=== PATIENT | male | born 1955 | race Caucasian/White ===

== ENCOUNTER 2022-02-09 08:21 | Emergency (ER) | payer MEDICARE, OTHER ==
[~2022-02-09] VITALS: Ht 172.7 cm; Wt 75.0 kg
[2022-02-09] MEDS ORDERED: VENCLEXTA10 MG (09:22)
[2022-02-09] MEDS ORDERED: PRILOSEC20 MG/CAP PO (09:23)
[2022-02-09] MEDS ORDERED: ALLOPURINOL300 MG PO (09:23)
[2022-02-09] MEDS ORDERED: LEVOTHYROXIN50 MCG PO (09:24)
[2022-02-09] MEDS ORDERED: TRAMADOL HYDROC50 M1 PO (09:54)
[2022-02-09] MEDS ORDERED: OMNI-PAC300 MG PO (09:57)
[2022-02-09] MEDS ORDERED: MUPIROCIN21 TOP (09:57)
[2022-02-09 10:56] VITALS: BP 128/78
== END 2022-02-09 10:59 | disposition home or self-care (01) ==
LOC: ED 08:21
DX: S61.012A Laceration without foreign body of left thumb without damage to nail, initial encounter (principal); C91.10 Chronic lymphocytic leukemia of B-cell type not having achieved remission; W31.2XXA Contact with powered woodworking and forming machines, initial encounter; Y92.009 Unspecified place in unspecified non-institutional (private) residence as the place of occurrence of the external cause